=== PATIENT | male | born 1980 | race Caucasian/White ===

== ENCOUNTER 2017-04-24 08:42 | Emergency (ER) | payer OTHER ==
[2017-04-24 09:09] VITALS: TEMP 99.2
[2017-04-24] MEDS ORDERED: SODIUM CHLORIDE 0.9% 1000ML 1,000 ML IVS ONE (09:09)
[2017-04-24] MEDS ORDERED: PANTOPRAZOLE SODIUM IV 40 MG VIAL IV ONE (09:09)
[2017-04-24] MEDS ORDERED: LIDOCAINE VIS-MYLANTA 30 ML UD PO ONE (09:09)
--- NOTE | 2017-04-24 09:22 | ED.PDOC ---
History of Present Illness - General Chief Complaint: Abdominal Pain Stated Complaint: abdominal pain Time Seen by Provider: 04/24/17 08:53 Source: patient - History of Present Illness Initial Comments: the patient is a 37-year-old male presenting to the emergency room secondary to nausea and vomiting for the last month with some associated epigastric abdominal pain. He started taking minocycline about a month ago. He has had a couple of emergency room visits with blood work and CT scans performed showing no definitive etiology. He has been taking anti-medic's with some effect. No acid reducing medications however. No fevers. No recent abdominal surgeries. He does have long-standing constipation related to pain medications. He is also been taking Pepto-Bismol for his gastritis which is worsening constipation. No diarrhea. No blood in the stools. No blood in the vomitus. Timing/Duration: constant Severity: moderate Improving Factors: nothing Worsening Factors: eating Associated Symptoms: malaise, nausea/vomiting Allergies/Adverse Reactions: Allergies NO KNOWN ALLERGY Allergy (Verified 04/24/17 09:09) Home Medications: Ambulatory Orders Ondansetron [Zofran Odt] 4 mg PO Q4H PRN #10 tab 04/24/17 Promethazine HCl [Phenergan] 25 mg MD Q6H PRN #10 sup 04/24/17 Sucralfate Tab [Carafate Tab] 1 gm PO QID #120 tab 04/24/17 Review of Systems - Review of Systems Constitutional: States: malaise EENTM: States: no symptoms reported Respiratory: States: no symptoms reported Cardiology: States: no symptoms reported Gastrointestinal/Abdominal: States: see HPI Genitourinary: States: no symptoms reported Musculoskeletal: States: no symptoms reported Skin: States: no symptoms reported Neurological: States: no symptoms reported Endocrine: States: no symptoms reported All other Systems: No Change from Baseline Past Medical History (General) - Patient Medical History Hx Hypertension: Yes Hx Thyroid Disease: Yes Surgical History: no surgical history - Vaccination History Hx Tetanus, Diphtheria Vaccination: Yes Hx Influenza Vaccination: No Hx Pneumococcal Vaccination: Yes - Social History Hx Tobacco Use: No Hx Alcohol Use: No Hx Substance Use: Yes - marijuana 3 weeks ago Hx Substance Use Treatment: No Hx Depression: No - Activities of Daily Living Hospice Agency (if applicable):: None - Female History Patient is a Female of Child Bearing Age (10 -59 yrs old): No Patient : No Family Medical History - Family History Mother Family History: Unknown Physical Exam - Physical Exam General Appearance: Alert, Comfortable, No apparent distress Eye Exam: bilateral normal Ears, Nose, Throat: hearing grossly normal, normal ENT inspection, normal pharynx Neck: non-tender, full range of motion, supple Respiratory: chest non-tender, lungs clear, normal breath sounds, no respiratory distress, no accessory muscle use Cardiovascular/Chest: normal peripheral pulses, regular rate, rhythm, no edema Peripheral Pulses: radial,right: 2+, radial,left: 2+, dorsalis pedis,right: 2+, dorsalis pedis,left: 2+ Gastrointestinal/Abdominal: soft, other - epigastric discomfort palpation. No definite palpable masses. No true rebound or peritoneal signs. Back Exam: normal inspection, no CVA tenderness, no vertebral tenderness Extremity: normal range of motion, non-tender, normal inspection, no pedal edema , normal capillary refill Neurologic: no motor/sensory deficits, alert, normal mood/affect, oriented x 3 Skin Exam: normal color Comments: Vital Signs - 8 hr 04/24/17 04/24/17 08:54 10:00 Temperature 99.2 F Pulse Rate [ 86 76 pulse ox] Respiratory 20 20 Rate Blood Pressure 124/82 131/77 [Left Arm] O2 Sat by Pulse 98 98 Oximetry Progress - Progress Progress: 04/24/17 10:45 the patient is a 37-year-old male presenting with gastritis and associated nausea and vomiting for the last month. This is possibly related to his minocycline. He should discontinue this medication. 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 He will be written for Carafate 4 times a day for a month. He will also be written for Phenergan suppositories and Zofran ODT tablets to use as needed until the nausea and vomiting. He needs to keep himself well-hydrated. He needs to avoid caffeine, nicotine, spicy foods, hot foods and large meals. ER warnings were given. He needs to follow up with his primary care doctor early next week. He also needs to obtain some Maalox to use as needed for gastritis symptoms. - Results/Orders Results/Orders: Laboratory Tests 04/24/17 04/24/17 04/24/17 09:02 09:20 09:20 WBC 10.2 RBC 4.89 Hgb 14.3 Hct 42.0 MCV 85.9 MCH 29.3 MCHC 34.1 RDW 12.9 Plt Count 281 MPV 8.4 Absolute Neuts (auto) 7.50 H Absolute Lymphs (auto) 1.90 Absolute Monos (auto) 0.70 Absolute Eos (auto) 0.10 Absolute Basos (auto) 0.10 Neutrophils % 73.1 Lymphocytes % 18.4 L Monocytes % 6.6 Eosinophils % 1.1 Basophils % 0.8 Sodium 139 Potassium 3.5 L Chloride 101 Carbon Dioxide 29 Anion Gap 12.5 BUN 19 H Creatinine 0.91 BUN/Creatinine Ratio 20.9 H Random Glucose 123 H Serum Osmolality 281.2 Calcium 9.7 Magnesium 2.2 Total Bilirubin 0.5 AST 29 ALT 37 Alkaline Phosphatase 66 Creatine Kinase 67 CK-MB (CK-2) 2.8 CK-MB (CK-2) % Not Reportable Troponin I < 0.02 Serum Total Protein 7.6 Albumin 4.6 Globulin 3.0 Albumin/Globulin Ratio 1.5 Amylase 68 Lipase 36 Urine Color Peach Urine Appearance Clear Urine pH 7.0 Ur Specific Sapphire 1.020 Urine Protein 30 Urine Glucose (UA) Negative Urine Ketones 15 H Urine Blood Negative Urine Nitrite Negative Urine Bilirubin Small H Urine Urobilinogen 0.2 Ur Leukocyte Esterase Negative Urine RBC 0-1 Urine WBC 0-1 Ur Epithelial Cells 0-1 Amorphous Sediment 1+ Urine Bacteria 0 Urine Mucus Moderate abdominal series is benign. Mild ileusprobably present. No obstruction. Departure - Departure Clinical Impression: Abdominal pain Qualifiers: Abdominal location: epigastric Qualified Code(s): R10.13 - Epigastric pain Disposition: Discharge to Home or Self Care Condition: Good Departure Forms: ED Discharge - Pt. Copy, Patient Portal Self Enrollment Instructions: DI for Abdominal Pain-Adult Diet: bland diet Activity: increase activity as tolerated Prescriptions: Ondansetron [Zofran Odt] 4 mg PO Q4H PRN #10 tab PRN Reason: Vomiting Promethazine HCl [Phenergan] 25 mg MD Q6H PRN #10 sup PRN Reason: Nausea/Vomiting Sucralfate Tab [Carafate Tab] 1 gm PO QID #120 tab Home Medications: Ambulatory Orders Ondansetron [Zofran Odt] 4 mg PO Q4H PRN #10 tab 04/24/17 Promethazine HCl [Phenergan] 25 mg MD Q6H PRN #10 sup 04/24/17 Sucralfate Tab [Carafate Tab] 1 gm PO QID #120 tab 04/24/17 Additional Instructions: the patient is a 37-year-old male presenting with gastritis and associated nausea and vomiting for the last month. This is possibly related to his minocycline. He should discontinue this medication. 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 He will be written for Carafate 4 times a day for a month. He will also be written for Phenergan suppositories and Zofran ODT tablets to use as needed until the nausea and vomiting. He needs to keep himself well-hydrated. He needs to avoid caffeine, nicotine, spicy foods, hot foods and large meals. ER warnings were given. He needs to follow up with his primary care doctor early next week. He also needs to obtain some Maalox to use as needed for gastritis symptoms.
[2017-04-24] MEDS ORDERED: ONDANSETRON ODT 8 MG TAB SL SCH (09:30)
--- NOTE | 2017-04-24 10:21 | RAD ---
EXAM DESCRIPTION: Abdomen Series CLINICAL HISTORY: 37 years Male, abd pain, n/v for 1 month IMPRESSION: Lungs are clear. Heart size is unremarkable. No free air within the abdomen on today's exam. There are a few air-fluid level seen within the mid abdomen and right lower quadrant which can be seen in setting of an ileus. Electronically signed by: Matthew Hanson MD 04/24/2017 10:21 AM CDT
[2017-04-24 11:00] VITALS: BP 134/82; O2SAT 100
== END 2017-04-24 11:00 | disposition home or self-care (01) ==
LOC: ER 08:42
DX: R10.13 Epigastric pain (principal); I10 Essential (primary) hypertension; E07.9 Disorder of thyroid, unspecified; Z79.899 Other long term (current) drug therapy
CPT/HCPCS: 36415; 74020; 80053; 81001; 82150; 82550; 82553; 83690; 83735; 84484; 85025; J7030

== ENCOUNTER 2017-07-26 18:03 | Emergency (ER) | payer SELFPAY ==
[2017-07-26] MEDS ORDERED: SODIUM CHLORIDE 0.9% 1000ML 1,000 ML IVS ONE (18:33)
[2017-07-26] MEDS ORDERED: predniSONE 20 MG TAB PO ONE (18:33)
[2017-07-26] MEDS ORDERED: diazePAM 2 MG TAB PO ONE (18:34)
[2017-07-26] MEDS ORDERED: KETOROLAC TROMETHAMINE INJ 30 MG/ML VIAL IV ONE (18:34)
[2017-07-26] MEDS ORDERED: METOCLOPRAMIDE HCL INJ 10 MG/2 ML VIAL IV ONE (18:34)
[2017-07-26] MEDS ORDERED: CYCLOBENZAPRINE HCL 10 MG TAB PO ONE (19:43)
--- NOTE | 2017-07-26 19:46 | ED.PDOC ---
History of Present Illness - General Chief Complaint: Headache Stated Complaint: headache Time Seen by Provider: 07/26/17 18:10 Source: patient Exam Limitations: no limitations - History of Present Illness Initial Comments: The patient is a 37-year-old male presenting to the emergency room secondary to complaints of headache and mid to lower back pain. 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 He reports that he has had imaging on both his brain and spine in the past. He reports that he gets significant headaches and back pain approximately 3 times yearly. This episode started approximately 3 hours prior to arrival. He had apparently exerted himself outside today. He is having some discomfort along side the right side of L1. He is also having some discomfort at the atlantooccipital junction as well as tenderness to palpationsurrounding the scalp. No vision changes. No neurological changes. He does have some nausea. No syncope or near syncope. No fever. No nuchal rigidity. No altered mental status. Timing/Duration: 1-3 hours Severity: moderate Improving Factors: nothing Worsening Factors: nothing Associated Symptoms: loss of appetite, malaise, nausea/vomiting Allergies/Adverse Reactions: Allergies NO KNOWN ALLERGY Allergy (Verified 04/24/17 09:09) Home Medications: Ambulatory Orders Ondansetron [Zofran Odt] 4 mg PO Q4H PRN #10 tab 04/24/17 Promethazine HCl [Phenergan] 25 mg NC Q6H PRN #10 sup 04/24/17 Sucralfate Tab [Carafate Tab] 1 gm PO QID #120 tab 04/24/17 Kruzkehdnjrun-Wsax-Ljffhaaucp [Fioricet] 1 ea PO Q8H PRN #21 tab 07/26/17 Ondansetron [Zofran Odt] 4 mg PO Q4H PRN #10 tab 07/26/17 Review of Systems - Review of Systems Constitutional: States: malaise EENTM: States: no symptoms reported Respiratory: States: no symptoms reported Cardiology: States: no symptoms reported Gastrointestinal/Abdominal: States: nausea Genitourinary: States: no symptoms reported Musculoskeletal: States: back pain Skin: States: no symptoms reported Neurological: States: anxiety, headache Endocrine: States: no symptoms reported All other Systems: No Change from Baseline Past Medical History (General) - Patient Medical History Hx Asthma: No Hx Hypertension: No Hx Thyroid Disease: Yes Hx Diabetes: No - Vaccination History Hx Tetanus, Diphtheria Vaccination: Yes Hx Influenza Vaccination: No Hx Pneumococcal Vaccination: Yes - Social History Hx Tobacco Use: No Hx Alcohol Use: No Hx Substance Use: Yes Hx Substance Use Treatment: No Hx Depression: No - Female History Patient : No Family Medical History - Family History Mother Family History: Unknown Physical Exam - Physical Exam General Appearance: Alert, Anxious, No apparent distress Eye Exam: bilateral normal Ears, Nose, Throat: hearing grossly normal, normal pharynx Neck: full range of motion, other - iscomfort palpation of the proximal paraspinal muscles at their attachment to the occiput. No deformity. No nuchal rigidity. 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 The patient has had workup for these in the past, according to him. The patient received a liter of IV fluids along with a dose of Reglan, Valium, Toradol and prednisone. The patient has not received total relief of his headache. The patient will receive one additional dose of Flexeril as a muscle relaxer to help reduce discomfort. Clinically the source of the headache and the back pain appear to be muscle spasm. He needs to keep well-hydrated. He will be written for Fioricet for as needed use. He will also be written for Zofran for as needed use for any future episodes of nausea and vomiting. He does need to follow-up with his primary care doctor preferably tomorrow. ER warnings were given. Departure - Departure Clinical Impression: Tension type headache Qualifiers: Headache chronicity pattern: episodic headache Intractability: not intractable Qualified Code(s): G44.219 - Episodic tension-type headache, not intractable Low back pain Qualifiers: Chronicity: chronic Back pain laterality: right Sciatica presence: without sciatica Qualified Code(s): M54.5 - Low back pain; G89.29 - Other chronic pain Disposition: Discharge to Home or Self Care Condition: Fair Departure Forms: ED Discharge - Pt. Copy, Patient Portal Self Enrollment Instructions: DI for Hormonal and Tension Headaches, DI for Low Back Pain Diet: regular diet Activity: increase activity as tolerated Prescriptions: Jkqovanaemltz-Sqjm-Gkrptzrcom [Fioricet] 1 ea PO Q8H PRN #21 tab PRN Reason: Pain Ondansetron [Zofran Odt] 4 mg PO Q4H PRN #10 tab PRN Reason: Vomiting Home Medications: Ambulatory Orders Ondansetron [Zofran Odt] 4 mg PO Q4H PRN #10 tab 04/24/17 Promethazine HCl [Phenergan] 25 mg NC Q6H PRN #10 sup 04/24/17 Sucralfate Tab [Carafate Tab] 1 gm PO QID #120 tab 04/24/17 Eyefqjwdoqmwi-Afdk-Xvdgijcykj [Fioricet] 1 ea PO Q8H PRN #21 tab 07/26/17 Ondansetron [Zofran Odt] 4 mg PO Q4H PRN #10 tab 07/26/17 Additional Instructions: the patient is a 37-year-old male presenting with a recurrence of his chronic headache and associated back pain after exerting himself today. The patient has had workup for these in the past, according to him. The patient received a liter of IV fluids along with a dose of Reglan, Valium, Toradol and prednisone. The patient has not received total relief of his headache. The patient will receive one additional dose of Flexeril as a muscle relaxer to help reduce discomfort. Clinically the source of the headache and the back pain appear to be muscle spasm. He needs to keep well-hydrated. He will be written for Fioricet for as needed use. He will also be written for Zofran for as needed use for any future episodes of nausea and vomiting. He does need to follow-up with his primary care doctor preferably tomorrow. ER warnings were given.
[2017-07-26 20:13] VITALS: BP 93/54; TEMP 98.4; O2SAT 98
== END 2017-07-26 20:14 | disposition home or self-care (01) ==
LOC: ER 18:03
DX: G44.219 Episodic tension-type headache, not intractable (principal); G89.29 Other chronic pain; M54.5 Low back pain; E07.9 Disorder of thyroid, unspecified; Z79.899 Other long term (current) drug therapy
CPT/HCPCS: J1885; J2765; J7030; J7512

== ENCOUNTER 2017-09-21 17:02 | Emergency (ER) | payer MEDICAID ==
[2017-09-21 17:21] VITALS: BP 124/85; TEMP 98.4; O2SAT 95
--- NOTE | 2017-09-21 17:44 | ED.PDOC ---
History of Present Illness - General Chief Complaint: Behavioral / Psych Stated Complaint: out of medication Time Seen by Provider: 09/21/17 17:08 Source: patient - History of Present Illness Initial Comments: Pal Sim 37 y/o male with anxiety disorder stated that he ran out of his lorazepam pill the last 2 days and could not refill it today.Has history of bipolar dis order and anxiety disorder.Recently move here from [place].Denies hospitalization for suicidal attempts/overdose. Timing/Duration: other - for medication refill Improving Factors: nothing Worsening Factors: nothing Associated Symptoms: denies symptoms Allergies/Adverse Reactions: Allergies NO KNOWN ALLERGY Allergy (Verified 04/24/17 09:09) Home Medications: Ambulatory Orders Carbamazepine [Tegretol] 200 mg PO BID 09/21/17 Levothyroxine Sodium 25 mcg PO DAILY 09/21/17 Lorazepam 1 mg PO BID 09/21/17 Lorazepam 1 mg PO BID #7 tab 09/21/17 Lurasidone HCl [Latuda] 60 mg PO DAILY 09/21/17 Propranolol HCl 40 mg PO DAILY 09/21/17 Review of Systems - Review of Systems All other Systems: Reviewed and Negative, No Change from Baseline Past Medical History (General) - Patient Medical History Hx Seizures: No Hx Asthma: No Hx Cardiac Disorders: No Hx Hypertension: Yes Hx Thyroid Disease: Yes Hx Diabetes: No Hx Other PMH: Yes - bipolar disorder Surgical History: no surgical history - Vaccination History Hx Tetanus, Diphtheria Vaccination: Yes Hx Influenza Vaccination: No Hx Pneumococcal Vaccination: Yes - Social History Hx Tobacco Use: No Hx Alcohol Use: No Hx Substance Use: Yes Hx Substance Use Treatment: No Hx Depression: No - Activities of Daily Living Patient Lives Alone: No - with sister - Female History Patient : No Family Medical History - Family History Mother Family History: Unknown Hx Family;Other: mom -Bipolar disorder/anxiety Physical Exam - Physical Exam General Appearance: Alert, No apparent distress Eye Exam: bilateral normal Ears, Nose, Throat: hearing grossly normal, normal ENT inspection Neck: non-tender, supple Respiratory: lungs clear, normal breath sounds Cardiovascular/Chest: normal peripheral pulses, regular rate, rhythm, no murmur Peripheral Pulses: radial,right: 2+, radial,left: 2+ Gastrointestinal/Abdominal: normal bowel sounds, non tender, soft, no organomegaly Extremity: non-tender, no pedal edema, no calf tenderness Neurologic: no motor/sensory deficits, alert, normal mood/affect, oriented x 3 Skin Exam: normal color, warm/dry Lymphatic: no adenopathy Comments: denies harm to self or others,affect appropriate Progress - Progress Progress: 09/21/17 17:45 Vital Signs - 8 hr 09/21/17 17:18 Temperature 98.4 F Pulse Rate [ 91 H LEFT BRACHIAL] Respiratory 20 Rate Blood Pressure 124/85 [LEFT BRACHIAL] O2 Sat by Pulse 95 Oximetry Departure - Departure Clinical Impression: History of psychiatric symptoms, Medication refill Time of Disposition: 17:56 Disposition: Discharge to Home or Self Care Condition: Fair Departure Forms: ED Discharge - Pt. Copy, Patient Portal Self Enrollment Instructions: DI for Bipolar Disorder Prescriptions: Lorazepam 1 mg PO BID #7 tab Home Medications: Ambulatory Orders Carbamazepine [Tegretol] 200 mg PO BID 09/21/17 Levothyroxine Sodium 25 mcg PO DAILY 09/21/17 Lorazepam 1 mg PO BID 09/21/17 Lorazepam 1 mg PO BID #7 tab 09/21/17 Lurasidone HCl [Latuda] 60 mg PO DAILY 09/21/17 Propranolol HCl 40 mg PO DAILY 09/21/17 Additional Instructions: NEED TO MAKE APPOINTMENT WITH [facility]-[phone] 09/24/2017
== END 2017-09-21 18:10 | disposition home or self-care (01) ==
LOC: ER 17:02
DX: Z76.0 Encounter for issue of repeat prescription (principal); F31.9 Bipolar disorder, unspecified; F41.9 Anxiety disorder, unspecified; Z79.899 Other long term (current) drug therapy; I10 Essential (primary) hypertension; E07.9 Disorder of thyroid, unspecified

== ENCOUNTER → 2017-10-02 | Outpatient (CLI) | payer MEDICAID | END | disposition home or self-care (01) | LOC: LAB.O 08:11 | DX: E78.2 Mixed hyperlipidemia (principal); I10 Essential (primary) hypertension; E03.9 Hypothyroidism, unspecified ==

== ENCOUNTER 2017-11-12 17:56 | Emergency (ER) | payer MEDICAID ==
[~2017-11-12 17:56] MED LIST: EPINEPHrine INJ 0.1 MG/ML 10 ML SYG ONE; SODIUM BICARBONATE SYRINGE 50 MEQ/50 ML SYG IV ONE
[2017-11-12] MEDS ORDERED: SODIUM CHLORIDE 0.9% 1000ML 1,000 ML IVS ONE (17:57)
[2017-11-12 18:30] VITALS: O2SAT 77
[2017-11-12 18:48] VITALS: BP 108/38; TEMP 97.5
--- NOTE | 2017-11-12 18:54 | ED.PDOC ---
History of Present Illness - General Chief Complaint: Cardiac Respiratory Arrest Stated Complaint: code blue Time Seen by Provider: 11/12/17 18:40 Source: EMS notes reviewed Exam Limitations: clinical condition, other - intubated in cardiac arrest - History of Present Illness Initial Comments: Pal Sim 37 y/o male brought by ems after they were called at a residence on this patient was found by girlfriends mom laying on the bathroom floor and on ems arrival was found to be pulseless,not breathing and was connected to aed and no defibrillation was recommended he had chest compressions started on ems arrival at the house,intubated bagged and 2 doses of epinephrine iv was given after securing iv access and continued chest compression was done on the way to ER;On patients arrival at ER continued chest compression,bagging thru et tube, iv epi given x 8,calcium gluconate 1 ampule iv and sodium bicarbonate iv as well as defibrillation was done at 200j and 300j 4x but despite continued advanced resuscitation done no pulse appreciated heart monitor showing flat line then at about 1822 hour resuscitation was then called off.Talked to girlfriend and her family and sister by phone regarding the patients demise. Reviewed medications brought by ems noted taking anti psychotic drug for his bipolar depression as was mentioned later on by girl friend. Timing/Duration: 1-3 hours Severity: severe Activities at Onset: other - see hpi Prior Chest Pain/Cardiac Workup: other - see hpi Worsening Factors: other - see hpi Associated Symptoms: other - see hpi Allergies/Adverse Reactions: Allergies NO KNOWN ALLERGY Allergy (Verified 04/24/17 09:09) Home Medications: Ambulatory Orders Carbamazepine [Tegretol] 200 mg PO BID 09/21/17 Lurasidone HCl [Latuda] 60 mg PO DAILY 09/21/17 RX: Levothyroxine Sodium 25 mcg PO DAILY 09/21/17 RX: Lorazepam 1 mg PO BID 09/21/17 RX: Lorazepam 1 mg PO BID #7 tab 09/21/17 RX: Propranolol HCl 40 mg PO DAILY 09/21/17 Review of Systems - Review of Systems Unable to Obtain Due To: condition, intubated Past Medical History (General) - Patient Medical History Hx Seizures: No Hx Asthma: No Hx Cardiac Disorders: No Hx Hypertension: Yes Hx Thyroid Disease: Yes Hx Diabetes: No Hx Other PMH: Yes - bipolar disorder Hx Other - free text: PMH from girlfriend as well as indication of drug being taken - Vaccination History Hx Tetanus, Diphtheria Vaccination: Yes Hx Influenza Vaccination: No Hx Pneumococcal Vaccination: Yes - Social History Hx Tobacco Use: No Hx Alcohol Use: No Hx Substance Use: Yes Hx Substance Use Treatment: No Hx Depression: No - Female History Patient : No Family Medical History - Family History Mother Family History: Unknown Hx Family;Other: mom -Bipolar disorder/anxiety Physical Exam - Physical Exam General Appearance: Other - unresponsive ;no scalp bleeding or hematoma;no post auricular hematoma,no steven ocular hematoma Eyes, Ears, Nose, Throat Exam: other - intubated Neck: supple Respiratory: other - intubated and bagged Cardiovascular/Chest: other - pulseless;flat line monitor Peripheral Pulses: radial,right: 0, radial,left: 0 Gastrointestinal/Abdominal: other - distended Extremity: other - no signs of bruising Skin Exam: cyanosis, other - cold ,claamy Progress - Progress Progress: 11/12/17 19:04 Last Vital Signs Temp 97.5 F L 11/12/17 17:56 Pulse Resp 17 11/12/17 18:27 BP 108/38 11/12/17 17:56 Pulse Ox 77 L 11/12/17 18:27 11/12/17 18:56 DRUG SCREEN,7 PANEL,SERUM Stat Laboratory Results - last 24 hr 11/12/17 11/12/17 11/12/17 18:07 18:07 18:07 WBC 5.3 RBC 4.20 L Hgb 12.9 L Hct 39.6 L MCV 94.4 H MCH 30.7 MCHC 32.5 L RDW 14.1 Plt Count 211 MPV 9.3 Absolute Neuts (auto) 0.80 L Absolute Lymphs (auto) 4.20 H Absolute Monos (auto) 0.20 Absolute Eos (auto) 0.10 Absolute Basos (auto) 0.00 Neutrophils % 14.2 L Lymphocytes % 79.1 H Monocytes % 4.5 Eosinophils % 1.4 Basophils % 0.8 PT 11.9 INR 1.050 PTT (SP) 83.9 H* D-Dimer, Quantitative 3472 H* Sodium 147 H Potassium 5.4 H Chloride 109 Carbon Dioxide 17 L Anion Gap 26.4 H BUN 17 Creatinine 1.16 BUN/Creatinine Ratio 14.7 Random Glucose 104 Serum Osmolality 294.3 Calcium 8.3 L Magnesium 2.4 Total Bilirubin 0.2 AST 871 H ALT 1170 H Alkaline Phosphatase 96 Creatine Kinase 131 CK-MB (CK-2) 3.8 CK-MB (CK-2) % Not Reportable Troponin I 0.03 Serum Total Protein 6.4 Albumin 3.8 Globulin 2.6 Albumin/Globulin Ratio 1.5 11/12/17 19:08 LEGAL DOCUMENT ASSISTANT HERE Procedures - Additional Procedures Additional Procedures: CPR - please refer to notes, cardioversion/defib - please refer to notes Departure - Departure Clinical Impression: Idiopathic cardiac arrest Time of Disposition: 19:07 Disposition: Condition: Serious Departure Forms: ED Discharge - Pt. Copy Home Medications: Ambulatory Orders Carbamazepine [Tegretol] 200 mg PO BID 09/21/17 Lurasidone HCl [Latuda] 60 mg PO DAILY 09/21/17 RX: Levothyroxine Sodium 25 mcg PO DAILY 09/21/17 RX: Lorazepam 1 mg PO BID 09/21/17 RX: Lorazepam 1 mg PO BID #7 tab 09/21/17 RX: Propranolol HCl 40 mg PO DAILY 09/21/17 Additional Instructions: Discharge to home of choice
--- NOTE | 2017-11-12 18:56 | RAD ---
PROCEDURE: XR CHEST 1 VIEW HISTORY: intubation COMPARISON: None TECHNIQUE: Single projection of the chest was done. FINDINGS: The tip of the endotracheal tube is 4 cm above the tracheal bifurcation . There are no discrete airspace infiltrates, pneumothoraces or pleural effusions. The pulmonary vascularity is normal. The cardiomediastinal silhouette is unremarkable for patient's age and sex. IMPRESSION: There is no acute pleural-parenchymal process seen in the imaged lung moreno. The tip of the endotracheal tube is 4 cm above the tracheal bifurcation . Electronically signed by: Manas Devine MD 11/12/2017 6:55 PM [facility] Workstation: [id number]
== END 2017-11-12 18:17 | disposition expired ==
LOC: ER 17:56
DX: I46.9 Cardiac arrest, cause unspecified (principal); F31.9 Bipolar disorder, unspecified
CPT/HCPCS: 36415; 71010; 80053; 82550; 82553; 83735; 84484; 85025; 85379; 85610; 85730; 94760; 94770; J7030